=== PATIENT | male | born 1990 | race African-American/Black ===

== ENCOUNTER 2017-10-18 17:52 | Emergency (ER) | payer SELFPAY ==
[~2017-10-18] VITALS: Ht 167.6 cm; Wt 91.0 kg
[~2017-10-18 17:52] MED LIST: Z.0.NO CURRENT MEDS
[2017-10-18 17:56] VITALS: BP 154/67; PULSE 104; RESP 16; TEMP 103; O2SAT 98
[2017-10-18] MEDS ORDERED: MAGICADU2 SWISH-SWAL (18:11)
[2017-10-18] MEDS ORDERED: PENI500T PO (18:11)
[2017-10-18] MEDS ORDERED: IBUPROFEN 600 MG TAB PO ONE (18:15)
[2017-10-18] MEDS ORDERED: ACETAMINOPHEN 500 MG CPLT PO ONE (18:15)
--- NOTE | 2017-10-18 18:18 | PD ---
HPI Chief Complaint: ENT Complaint Time Seen by Provider: 18:04 Travel History International Travel<30 days: No Contact w/Intl Traveler<30days: No Traveled to known affect area: No History of Present Illness HPI This patient complains of sore throat. Duration 2 days. He's had fever. No runny nose or congestion or cough. He is healthy. Severity is moderate. PFSH Past Medical History Diminished Hearing: No Tetanus Vaccination: Unknown Influenza Vaccination: No ?: Not Social History Alcohol Use: No Tobacco Use: Yes (/2 PPD) Substance Use: No Allergies-Medications (Allergen,Severity, Reaction): Coded Allergies: No Known Allergies (Unverified , 10/18/17) Reported Meds & Prescriptions Reported Meds & Active Scripts Active Penicillin V Potassium 500 Mg Tab 500 Mg PO Q6H Magic Mouthwash Adult Liq (Multi-Ingredient Mouthwash/Gargle) 120 Ml Susp 10 Ml SWISH-SWAL ACHS Each 5mL contains: Nystatin 200,000units, Diphenhydramine 4.25mg, Viscous Lidocaine 10mg, Perez syrup 0.8 mL Review of Systems General / Constitutional: Positive: Fever HENT: Positive: Sore Throat, No: Headaches Cardiovascular: No: Tachycardia Physical Exam Narrative GENERAL: Well-nourished, well-developed patient in no apparent distress. SKIN: Focused skin assessment reveals no rash and nodules. Skin is Warm and dry. HEAD: Atraumatic. Normocephalic. EYES: Pupils equal and round. No scleral icterus. No injection or drainage. ENT: No nasal bleeding or discharge. Mucous membranes pink and moist. Throat is erythematous with enlarged tonsils, uvula midline NECK: Trachea midline. No JVD. CARDIOVASCULAR: Regular rate and rhythm. No murmur appreciated. RESPIRATORY: No accessory muscle use. Clear to auscultation. Breath sounds equal bilaterally. GASTROINTESTINAL: Abdomen soft, non-tender, nondistended. Hepatic and splenic margins not palpable. MUSCULOSKELETAL: No obvious deformities. No clubbing. No cyanosis. No edema. NEUROLOGICAL: Awake and alert. No obvious cranial nerve deficits. Motor grossly within normal limits. Normal speech. PSYCHIATRIC: Appropriate mood and affect; insight and judgment normal. Data Data Last Documented VS Vital Signs Date Time Temp Pulse Resp B/P (MAP) Pulse Ox O2 Delivery O2 Flow Rate FiO2 10/18/17 17:56 103.0 104 16 154/67 (96) 98 Orders Orders Ibuprofen (Motrin) (10/18/17 18:15) Acetaminophen (Tylenol) (10/18/17 18:15) MDM Medical Decision Making Medical Screen Exam Complete: Yes Emergency Medical Condition: Yes Medical Record Reviewed: Yes Differential Diagnosis Pharyngitis, peritonsillar abscess, URI Narrative Course I have reviewed the patient's electronic medical record. Presentation is consistent with strep pharyngitis. He lacks viral symptoms. He has significant fever of 103 and matching erythematous posterior pharynx I gave him a dose of Tylenol and Motrin for fever Prescription written for Penicillin VK and magic mouthwash for symptom relief Diagnosis Primary Impression: Pharyngitis due to group A beta hemolytic Streptococci Additional Instructions: The patient was advised to follow up with their physician and return if they worsen. The patient was warned about potential sedation for the medications they will receive on prescription. Med/Other Pt SpecificInfo: Prescription(s) given Scripts Penicillin V Potassium (Penicillin V Potassium) 500 Mg Tab 500 MG PO Q6H for Infection, #28 TAB 0 Refills Prov: Kelby Pena MD 10/18/17 Pevjcrij-Xmztskyceivdgro-Ufxxbuiep Liq (Magic Mouthwash Adult Liq) 120 Ml Susp 10 ML SWISH-SWAL ACHS for Mouth sores, #120 ML 0 Refills Each 5mL contains: Nystatin 200,000units, Diphenhydramine 4.25mg, Viscous Lidocaine 10mg, Perez syrup 0.8 mL Prov: Kelby Pena MD 10/18/17 Disposition: 01 DISCHARGE HOME Condition: Stable Kelby Pena MD Oct 18, 2017 18:18
== END 2017-10-18 18:25 | disposition home or self-care (01) ==
LOC: PHED 17:52
DX: J02.0 Streptococcal pharyngitis (principal); F17.210 Nicotine dependence, cigarettes, uncomplicated
CPT/HCPCS: 99284